=== PATIENT | female | born 1995 | race African-American/Black ===

== ENCOUNTER 2020-02-09 13:07 | Emergency (ER) | payer MEDICAID ==
--- NOTE | 2020-02-09 13:59 | ER Document Report ---
ED Medical Screen (RME) - General Chief Complaint: Pelvic Pain Stated Complaint: ABDOMINAL PAIN Time Seen by Provider: 02/09/20 13:56 Information source: Patient Notes: 24-year-old female presents to ED for pelvic pain. She states she started cramping when she found out she was on January 22. She states her last menstrual period was December 24. She denies any vaginal bleeding. 2 para 1. Denies any vaginal discharge, any nausea or vomiting. Patient is alert oriented respirations regular nonlabored speaking in full sentences we will get blood work and urine and ultrasound. She states the pains feel like labor pains. I have greeted and performed a rapid initial assessment of this patient. A comprehensive ED assessment and evaluation of the patient, analysis of test results and completion of medical decision making process will be conducted by an additional ED providers. - Related Data Allergies/Adverse Reactions: No Known Allergies Allergy (Verified 12/30/12 21:46) Past Medical History - Immunizations Hx Diphtheria, Pertussis, Tetanus Vaccination: Yes - Jul 2012 Physical Exam - Vital signs Vitals: Temp Pulse Resp BP Pulse Ox 97.9 F 90 16 115/62 100 02/09/20 13:14 02/09/20 13:14 02/09/20 13:14 02/09/20 13:14 02/09/20 13:14 Course - Vital Signs Vital signs: Temp Pulse Resp BP Pulse Ox 97.9 F 90 16 115/62 100 02/09/20 13:14 02/09/20 13:14 02/09/20 13:14 02/09/20 13:14 02/09/20 13:14
--- NOTE | 2020-02-09 15:30 | RADIOLOGY REPORT (SQ) ---
EXAM DESCRIPTION: U/S OB TRANSVAGINAL W/O DOP IMAGES COMPLETED DATE/TIME: 02/09/2020 3:02 pm REASON FOR STUDY: Pelvic pain early COMPARISON: None. TECHNIQUE: Transvaginal static and realtime grayscale images acquired of the pelvis. Additional liz cted spectral and color Doppler images recorded. All images stored on PACs. bHCG: Not available. CLINICAL DATES: 6 weeks, 4 days LIMITATIONS: None. FINDINGS: FETUS: Single Living intrauterine . ULTRASOUND EGA: 6 weeks, 3 days ULTRASOUND TIFFANY: 10/01/2020 EFW: Not applicable less than 20 weeks. CRL: 5 mm FHR: 97 beats per minute. SURVEY: Too early to assess. AMNIOTIC FLUID: Adequate amount. PLACENTA: Not yet developed due to early gestation. SUBCHORIONIC BLEED: No. SIZE OF BLEED: Not applicable. UTERUS: No masses. No anomalies. CERVICAL LENGTH: 3.1 cm Closed. RIGHT ADNEXA: Normal ovary with normal vascular flow. No adnexal free fluid. No adnexal masses. LEFT ADNEXA: Normal ovary with normal vascular flow. No adnexal free fluid. No adnexal masses. FREE FLUID: Trace simple appearing free fluid is seen within the pelvic cul-de-sac. OTHER: No other significant finding. IMPRESSION: LIVING INTRAUTERINE . EGA 6 weeks, 3 days Trimester of : First trimester - 0 to 13 weeks. TECHNICAL DOCUMENTATION: JOB ID: [id number] 2010 [employer]- All Rights Reserved rev-11/11 Reading location - IP/workstation name: [email or web address]
[2020-02-09 15:51] LABS: ALBUMIN 4.8 g/dL (3.5-5.0); ALKALINE PHOSPHATASE 55 U/L (38-126); ANION GAP 10 (5-19); ASPARTATE AMINO TRANSFERASE 19 U/L (14-36); BILIRUBIN,TOTAL 0.6 mg/dL (0.2-1.3); BLOOD UREA NITROGEN 12 mg/dL (7-20); CALCIUM 9.6 mg/dL (8.4-10.2); CARBON DIOXIDE 24 mmol/L (22-30); CHLORIDE 104 mmol/L (98-107); GLUCOSE 89 mg/dL (75-110); POTASSIUM 3.8 mmol/L (3.6-5.0); TOTAL PROTEIN 8.5 g/dL (6.3-8.2)
[2020-02-09 15:55] LABS: ABSOLUTE BASOPHILS # (AUTO) 0.1 10^3/uL (0.0-0.2); ABSOLUTE EOSINOPHILS # (AUTO) 0.1 10^3/uL (0.0-0.6); ABSOLUTE LYMPHOCYTES (AUTO) 1.5 10^3/uL (0.5-4.7); ABSOLUTE MONOCYTES (AUTO) 0.7 10^3/uL (0.1-1.4); ABSOLUTE NEUT (AUTO) 5.7 10^3/uL (1.7-8.2); BASOPHILS % (AUTO) 0.6 % (0-2); EOSINOPHILS % (AUTO) 1.2 % (0-6); HEMATOCRIT 36.1 % (36.0-47.0); HEMOGLOBIN 11.8 g/dL (12.0-15.5); LYMPHOCYTES % (AUTO) 18.9 % (13-45); MEAN CORPUSCULAR HEMOGLOBIN 27.3 pg (27.0-33.4); MEAN CORPUSCULAR HGB CONC 32.8 g/dL (32.0-36.0); MEAN CORPUSCULAR VOLUME 83 fl (80-97); MONOCYTES % (AUTO) 8.6 % (3-13); PLATELET COUNT 356 10^3/uL (150-450); RED BLOOD COUNT 4.34 10^6/uL (3.72-5.28); RED CELL DISTRIBUTION WIDTH 16.9 % (11.5-14.0); SEGMENTED NEUTROPHILS % (AUTO) 70.7 % (42-78); TOTAL CELLS COUNTED % (AUTO) 100 %; WHITE BLOOD COUNT 8.1 10^3/uL (4.0-10.5)
[2020-02-09] MEDS ORDERED: ACETAMINOPHEN 325 MG TABLET PO ONE (16:08)
--- NOTE | 2020-02-09 16:15 | ER Document Report ---
ED GI/ - General Chief Complaint: Pelvic Pain Stated Complaint: ABDOMINAL PAIN Time Seen by Provider: 02/09/20 13:56 Mode of Arrival: Ambulatory Information source: Patient Notes: 24-year-old female past medical history significant for asthma 2 para 1 presents to the emergency room complaining of persistent pelvic cramping for the past 3 weeks. States she is been having pain ever since she found out she was . States she was seen by the health department January 27 was told that the cramping was normal. She denies any vaginal bleeding, no vaginal discharge. Has not been taking anything for the pain. Has not had any other OB care as of yet. Denies nausea, vomiting, TRAVEL OUTSIDE OF THE [place] IN LAST 30 DAYS: No - Related Data Allergies/Adverse Reactions: No Known Allergies Allergy (Verified 12/30/12 21:46) Past Medical History - General Information source: Patient Last Menstrual Period: 12/25/19 - Social History Smoking Status: Never Smoker Chew tobacco use (# tins/day): No Frequency of alcohol use: None Drug Abuse: Bath salts Family History: Reviewed & Not Pertinent - Immunizations Hx Diphtheria, Pertussis, Tetanus Vaccination: Yes - Jul 2012 Review of Systems - Review of Systems Constitutional: No symptoms reported Cardiovascular: No symptoms reported Respiratory: No symptoms reported Gastrointestinal: denies: Nausea, Vomiting Female Genitourinary: , Other - Pelvic cramping. denies: Vaginal discharge, Vaginal bleeding Musculoskeletal: No symptoms reported Skin: No symptoms reported -: Yes All other systems reviewed and negative Physical Exam - Vital signs Vitals: Temp Pulse Resp BP Pulse Ox 97.9 F 90 16 115/62 100 02/09/20 13:14 02/09/20 13:14 02/09/20 13:14 02/09/20 13:14 02/09/20 13:14 - General General appearance: Appears well, Alert In distress: Mild - Respiratory Respiratory status: No respiratory distress Chest status: Nontender Breath sounds: Normal Chest palpation: Normal - Cardiovascular Rhythm: Regular Heart sounds: Normal auscultation Murmur: No - Abdominal Inspection: Normal Distension: No distension Bowel sounds: Normal Tenderness: Nontender Organomegaly: No organomegaly - Neurological Neuro grossly intact: Yes Cognition: Normal Orientation: AAOx4 Basilio Coma Scale Eye Opening: Spontaneous Basilio Coma Scale Verbal: Oriented Basilio Coma Scale Motor: Obeys Commands [place] Coma Scale Total: 15 Speech: Normal Motor strength normal: LUE, RUE, LLE, RLE Sensory: Normal - Skin Skin Temperature: Warm Skin Moisture: Dry Skin Color: Normal Course - Re-evaluation Re-evalutation: 02/09/20 16:15 Patient is resting comfortably rates her pain at 5 out of 5 however she is totally pain-free on exam. Patient was given p.o. Tylenol aware that labs and ultrasound report are pending. 02/09/20 17:25 Patient is resting comfortably she is pain-free on exam. Denies pain at this time. Reviewed all test results with patient. Counseled on the importance of following up with her [employer]. Can take Tylenol as needed for pain. Counseled not to exceed 8 tablets in a 24-hour period. Patient was given strict return to the emergency room guidelines. Return for any new or worsening symptoms. All questions were answered. Patient verbalized understanding and agrees with plan of care. - Vital Signs Vital signs: Temp Pulse Resp BP Pulse Ox 98.2 F 81 16 108/54 L 100 02/09/20 17:29 02/09/20 17:29 02/09/20 17:29 02/09/20 17:29 02/09/20 17:29 - Laboratory Result Diagrams: 02/09/20 15:05 02/09/20 15:05 Laboratory results interpreted by me: 02/09/20 02/09/20 02/09/20 15:05 15:05 16:42 Hgb 11.8 L RDW 16.9 H Total Protein 8.5 H Beta HCG, Quant 19402.00 H Urine Protein 30 H Urine Ketones 80 H Ur Leukocyte Esterase SMALL H Urine Ascorbic Acid 40 H Discharge - Discharge Clinical Impression: Abdominal pain in Qualifiers: Trimester: first trimester Qualified Code(s): O26.891 - Other specified related conditions, first trimester Condition: Stable Disposition: HOME, SELF-CARE Instructions: Pelvic Pain in ([facility]) Additional Instructions: Take Tylenol as needed for pain. Follow-up with your [employer] as scheduled. Return to the emergency room for any new or worsening symptoms.
[2020-02-09 17:01] LABS: APPEARANCE,URINE SLIGHTLY-CLOUDY; BILIRUBIN,URINE NEGATIVE (NEGATIVE); COLOR,URINE YELLOW; GLUCOSE, URINE NEGATIVE (NEGATIVE); KETONES,URINE 80 mg/dL (NEGATIVE); LEUKOCYTE ESTERASE,URINE SMALL (NEGATIVE); NITRITE,URINE NEGATIVE (NEGATIVE); PROTEIN,URINE 30 mg/dL (NEGATIVE); UROBILINOGEN,URINE NEGATIVE mg/dL (<2.0)
[2020-02-09 17:31] VITALS: BP 108/54
== END 2020-02-09 17:32 | disposition home or self-care (01) ==
LOC: ER 13:07
DX: O26.891 Other specified pregnancy related conditions, first trimester (principal); R10.2 Pelvic and perineal pain; R10.9 Unspecified abdominal pain; Z3A.01 Less than 8 weeks gestation of pregnancy
CPT/HCPCS: 99283; 90471; 36415; 84702; 85025; 80053; 81001; 76817; J3490